=== PATIENT | female | born 1995 | race Caucasian/White ===

== ENCOUNTER → 2022-11-19 10:55 | Outpatient (BNVA) | payer MEDICAID, SELFPAY | PROVIDERS: PCP Family Medicine; Visit Provider Family Medicine | DX: Z13.6 Encounter for screening for cardiovascular disorders (principal) | CPT/HCPCS: 80053; 84439; 84443; 85025 ==

== ENCOUNTER → 2022-12-29 10:06 | Outpatient (BNVA) | payer MEDICAID, SELFPAY | PROVIDERS: PCP Family Medicine; Visit Provider Registered Nurse Neonatal Intensive Care | DX: N39.0 Urinary tract infection, site not specified (principal) | CPT/HCPCS: 81000 ==

== ENCOUNTER → 2023-11-18 10:21 | Outpatient (BNVA) | payer MEDICAID, SELFPAY | PROVIDERS: PCP Family Medicine; Visit Provider Nurse Practitioner Women's Health | DX: N84.1 Polyp of cervix uteri (principal) | CPT/HCPCS: 76830 ==

== ENCOUNTER 2024-01-09 06:42 | Day surgery (SDC) | payer MEDICAID, SELFPAY ==
--- NOTE | 2024-01-08 22:51 | W.PM.OPSFHP ---
Same Day Surgery H&P Indication for Procedure/HPI DATE OF PROCEDURE: January 08, 2024 CHIEF COMPLAINT/INDICATIONFOR SURGICAL PROCEDURE: cervical polyp PREOP DIAGNOSIS: cervical polyp PLANNED PROCEDURE: Operation Date: 01/09/24 08:20 Proposed Procedures p LEEP-Loop electrosurgucal excision procedure 33772,N84.1(Not Applicable) - Maxwell Sutherland MD 27 y.o. A1 On OCs c/o bleeding daily x two years + spotting + bleeding with intercourse Was examined here, found to have a cervical polyp Now scheduled for loop electrosurgical excision of cervical polyp Medications/Allergies* Allergies/Adverse Reactions Allergy/AdvReac Type Severity Reaction Status Date / Time Latex Allergy Mild ALGY-Rash Uncoded 12/02/23 13:39 Pertinent History/Comorbid Conditions* Medical History (Updated 11/05/23 @ 11:01 by Elida Bello NP) Endometriosis On OCP's Surgical History (Updated 11/19/22 @ 10:23 by Janet Pope DO) History of dilation and curettage Due to miscarriage History of Pertinent Exam Findings alert, oriented x 3, clear to auscultation bilaterally and regular rate & rhythm Recommendations Surgery/Procedure today Coding Level of Care Code Acute Code for Chg Fwd Time Spent (min) 20
[2024-01-09 07:04] VITALS: BP 120/69; PULSE 84; RESP 18; TEMP 36.4; O2SAT 98; BMI 23.6
[2024-01-09] MEDS: sodium chloride 0.9% 1,000 ML 30 ML IV (07:16)
[2024-01-09 07:20] LABS: OR HCG Qualitative Urine Negative (Negative)
--- NOTE | 2024-01-09 07:37 | ANES.PREANE2 ---
Pre-Anesthetic Assessment Height/Weight: Height 1.63 m Weight 62.596 kg Temp Pulse Resp BP Pulse Ox O2 Del Method 97.6 F 84 18 120/69 98 Room Air 01/09/24 07:04 01/09/24 07:04 01/09/24 07:04 01/09/24 07:04 01/09/24 07:04 01/09/24 07:04 Preop Diagnosis: cervical polyp Operation Date: 01/09/24 08:20 Proposed Procedures p LEEP-Loop electrosurgucal excision procedure 68239,N84.1(Not Applicable) - Maxwell Sutherland MD Familial anesthetic complications: None Was Beta Carmen taken within 24 hours: N/A Was Clonidine taken within 24 hours: N/A Last intake: Intake Last Liquid Date 01/08/24 Last Liquid Time 23:00 Last Solid Date 01/08/24 Last Solid Time 20:00 Social No alcohol and No tobacco Exam alert, oriented x 3, clear to auscultation bilaterally and regular rate & rhythm Airway Mallampati: Class I Dentition: full Anesthetic Plan ASA status: 1 Anesthesia: General Risk of > 500 ml blood loss (7ml/kg in children): No Medications/Allergies Home Medications Medication Instructions Recorded Confirmed Last Taken Type norethindrone acetate 1 mg-ethinyl See Rx Instructions .Route 11/15/23 01/08/24 01/08/24 Rx estradiol 20 mcg tablet .COMPLEX #63 tabs Allergies Allergy/AdvReac Type Severity Reaction Status Date / Time Latex Allergy Mild ALGY-Rash Uncoded 12/02/23 13:39 Current Medications Generic Name Dose Route Start Last Admin Trade Name Ajith PRN Reason Stop Dose Admin Sodium Chloride 1,000 mls @ 30 mls/hr 01/09/24 07:00 01/09/24 07:16 Sodium Chloride 0.9% IV 01/10/24 06:59 30 mls/hr .Q24H KENNETH Administration PFSH Anesthesia Medical History Endometriosis On OCP's Surgical History History of dilation and curettage Due to miscarriage History of Data Anesthesia Cardiac Studies: No Data to Display
--- NOTE | 2024-01-09 09:22 | PC.NURSE ---
Pt issue was resolving itself so decision was made by Dr. Sutherland not to proceed today pt fluids were discontinued and IV removed pt left for home
== END 2024-01-09 09:21 | disposition home or self-care (01) ==
PROVIDERS: Anesthesiology; PCP Family Medicine; Visit Provider Obstetrics & Gynecology
PROC: 0UBC7ZZ Excision of Cervix, Via Natural or Artificial Opening (ICD-10-PCS; CPT 57522; principal; 2024-01-09 08:10)
DX: N84.1 Polyp of cervix uteri (principal); Z53.8 Procedure and treatment not carried out for other reasons
CPT/HCPCS: 81025; 84703; J1100; J2250; J2405; J2704; J3010; J7030

== ENCOUNTER → 2024-03-04 11:35 | Outpatient (BNVA) | payer MEDICAID, SELFPAY | PROVIDERS: PCP Family Medicine; Visit Provider Obstetrics & Gynecology | DX: N88.8 Other specified noninflammatory disorders of cervix uteri (principal) | CPT/HCPCS: 87624 ==

== ENCOUNTER 2024-03-05 06:44 | Outpatient (CLI) | payer MEDICAID, SELFPAY ==
--- NOTE | 2024-03-05 06:45 | US_ITS ---
WS: [id number] US pelv w/transvag [id number] HISTORY: N88.8 - Other specified noninflammatory disorders of cerv... COMPARISON: 11/18/2023 Diagnostic limited evaluation of the pelvic structures. Uterus and adnexa were better visualized on t he prior study of 11/18/2023. Uterus: 6.0 cm x 4.1 cm x 3.4 cm. Uterus is tipped posteriorly. Uterus is only visualized on the transvaginal exam. There is heterogene ity within the myometrium but no definite fibroid. Endometrium: 0.8 cm. Endometrium is only intermittently visualized. There are a few calcifications pr obably representing prior instrumentation. Marked greater thickening of the lower endometrium. On the prior examination concern for a cervical polyp was raised. This thickening in the lower endocervical region could potentially be the polyp extending into the lower endometrial canal. Right ovary: 2.0 cm x 1.0 cm x 1.5 cm. Normal size and vascularity, no cystic or solid masses. Left ovary: 2.1 cm x 1.0 cm x 2.1 cm. Normal size and vascularity, no cystic or solid masses. No free fluid in the cul-de-sac. US/US pelv w/transvag [id number] IMPRESSION: 1. Quality this examination is limited. Very poor visualization of the uterus and endometrium and adnexa. 2. Asymmetric thickening of the endometrium. The lower endometrium is much mor e thick and prominent as compared to the endometrium towards the fundus. This t hickening could potentially be the previously described cervical polyp extendin g into the lower endometrial canal. Again, this ultrasound examination is of li mited diagnostic quality. Direct visualization of the cervical canal and lower endometrium may be necessary.
== END 2024-03-05 06:45 | disposition home or self-care (01) ==
LOC: RAD 06:44
PROVIDERS: PCP Family Medicine; Visit Provider Obstetrics & Gynecology
DX: N85.00 Endometrial hyperplasia, unspecified (principal)
CPT/HCPCS: 76830; 76856

== ENCOUNTER 2024-04-30 07:50 | Day surgery (SDC) | payer MEDICAID, SELFPAY ==
[2024-04-30] VITALS (12 sets, daily range): BP systolic 100–118; BP diastolic 67–82; PULSE 61–86; RESP 16–18; TEMP 36.1–36.6; O2SAT 92–99
--- NOTE | 2024-04-30 04:55 | P.HP_ITS ---
Same Day Surgery H&P Indication for Procedure/HPI DATE OF PROCEDURE: April 30, 2024 CHIEF COMPLAINT/INDICATIONFOR SURGICAL PROCEDURE: abnormal uterine bleeding PREOP DIAGNOSIS: abnormal uterine bleeding PLANNED PROCEDURE: Operation Date: 04/30/24 09:25 Proposed Procedures p Hysteroscopy Hysteroscopy w/ Endometrial Sampling, Possible Endometrial Polyp ectomy 49490, 99400, N93.9, N84.1(Not Applicable) - Maxwell Sutherland MD s Loop Electrosurgical Excision Procedure(Not Applicable) - Maxwell Sutherland MD 28 y.o. A1 On OCs Has two-year h/o daily ?random? bleeding Occurs throughout the day + bleeding with intercourse Now scheduled for hysteroscopy, endometrial sampling, LEEP cervical excision Medications/Allergies* Allergies/Adverse Reactions Allergy/AdvReac Type Severity Reaction Status Date / Time Latex Allergy Mild ALGY-Rash Uncoded 04/29/24 08:35 Pertinent History/Comorbid Conditions* Medical History (Updated 03/22/24 @ 16:11 by Maxwell Sutherland MD) Cervical polyp Endometriosis On OCP's Surgical History (Updated 11/19/22 @ 10:23 by Janet Pope DO) History of dilation and curettage Due to miscarriage History of Family History (Updated 01/10/24 @ 10:55 by Maxwell Sutherland MD) Cervical polyp Pertinent Exam Findings alert, oriented x 3, clear to auscultation bilaterally and regular rate & rhythm Recommendations Surgery/Procedure today Coding Level of Care Code Acute Code for Chg Fwd Time Spent (min) 20
[2024-04-30] MEDS: sodium chloride 0.9% 1,000 ML 30 ML IV (08:12)
[2024-04-30] MEDS: scopolamine 1.5 Patch 1 PATCH TRANSDERMA (08:12)
[2024-04-30 08:24] LABS: OR HCG Qualitative Urine Negative (Negative)
--- NOTE | 2024-04-30 08:44 | W.PM.OPSUD ---
Surgery/Procedure H&P Update DATE OF PROCEDURE: April 30, 2024 DATE H&P PERFORMED: 04/30/24 H&P UPDATE INFORMATION: I have reviewed H&P completed within last 30 days, I have examined patient prior to procedure and No changes to prior documentation PREOP DIAGNOSIS: abnormal uterine bleeding PLANNED PROCEDURE: Operation Date: 04/30/24 09:25 Proposed Procedures p Hysteroscopy Hysteroscopy w/ Endometrial Sampling, Possible Endometrial Polypectomy 36649, 81015, N93.9, N84.1(Not Applicable) - Maxwell Sutherland MD s Loop Electrosurgical Excision Procedure(Not Applicable) - Maxwell Sutherland MD
--- NOTE | 2024-04-30 09:10 | ANES.PREANE2 ---
Pre-Anesthetic Assessment Height/Weight: Height 1.63 m Temp Pulse Resp BP Pulse Ox O2 Del Method 97 F L 74 16 113/81 98 Room Air 04/30/24 08:04 04/30/24 08:04 04/30/24 08:04 04/30/24 08:04 04/30/24 08:04 04/30/24 08:07 Preop Diagnosis: abnormal uterine bleeding Operation Date: 04/30/24 09:25 Proposed Procedures p Hysteroscopy Hysteroscopy w/ Endometrial Sampling, Possible Endometrial Polypectomy 71693, 29546, N93.9, N84.1(Not Applicable) - Maxwell Sutherland MD s Loop Electrosurgical Excision Procedure(Not Applicable) - Maxwell Sutherland MD Familial anesthetic complications: none Was Beta Carmen taken within 24 hours: N/A Was Clonidine taken within 24 hours: N/A Last intake: Intake Last Liquid Date 04/29/24 Last Liquid Time 22:00 Last Solid Date 04/29/24 Last Solid Time 22:00 Social Alcohol and No tobacco drinks once per week Airway Submandibular: within normal limits Cervical ROM: within normal limits Dentition: full Comments: Comments: metal in upper teeth per orthodonist History/ROS No significant history except as noted and No significant complaints Pulmonary None reported CV/HEM None reported None reported Hepatic None reported GI None reported Metabolic None reported Musc/skel None reported Neuropsych None reported Anesthetic Plan ASA status: 2 Anesthesia: General Risk of > 500 ml blood loss (7ml/kg in children): No Medications/Allergies Home Medications Medication Instructions Recorded Confirmed Last Taken Type norethindrone acetate 1 mg-ethinyl See Rx Instructions .Route 01/23/24 04/29/24 04/29/24 Rx estradiol 20 mcg tablet .COMPLEX #63 tabs Allergies Allergy/AdvReac Type Severity Reaction Status Date / Time Latex Allergy Mild ALGY-Rash Uncoded 04/30/24 07:58 Current Medications Generic Name Dose Route Start Last Admin Trade Name Freq PRN Reason Stop Dose Admin Sodium Chloride 1,000 mls @ 30 mls/hr 04/30/24 08:00 04/30/24 08:12 Sodium Chloride 0.9% IV 05/01/24 07:59 30 mls/hr .Q24H KENNETH Administration PFSH Anesthesia Medical History Cervical polyp Endometriosis On OCP's Surgical History History of dilation and curettage Due to miscarriage History of Family History Other Cervical polyp Data Anesthesia Cardiac Studies: No Data to Display
[2024-04-30] MEDS: vasopressin 20 unit/mL INJ INJECTION (10:13)
[2024-04-30] MEDS: fentaNYL 50 mcg/mL INJ 2mL IVP (10:40)
--- NOTE | 2024-04-30 10:45 | PM.OP ---
Operative Report Date of procedure: May 01, 2024 Pre-op diagnosis: abnormal uterine bleeding cervical mass on ultrasound Post-op diagnosis: same Post-op findings: uterus sounded to 8 cm Endometrial cavity normal Minimal endometrial tissue No polyps or fibroids Normal cervix Procedure done: hysteroscopy Curettage of uterus Electrosurgical loop excision of the cervix Implants: none Specimens removed/disposition: endometrial tissue cervical tissue Surgeon: Maxwell Sutherland MD Anesthesia: General Estimated blood loss (mL): 5 Complications: none Condition: stable Disposition: PACU Brief History: 28 y.o. with daily bleeding and cervical mass on ultrasound Procedure: Informed consent signed. Patient was taken to the operating room. Anesthesia was induced. Patient was placed in dorsolithotomy position, prepped and draped for hysteroscopy. A bivalve speculum was placed in the vagina. The anterior lip of the cervix was grasped with a sharp-toothed tenaculum. The cervix was serially dilated with Hegar dilators. A hysteroscope was placed into the endometrial cavity. The endometrial cavity was seen to be normal. There were no polyps or fibroids. There was small amount of endometrial tissue. The hysteroscope was then removed. Endometrial curettage was done with a sharp curette. Endometrial tissue was sent to pathology. The cervix was then infiltrated at the cervicovaginal junction with 20 U of vasopressin to decrease bleeding. Electrosurgical loop excision of the cervix was done to a depth of approximately 5 mm. No bleeding was seen. Excellent hemostasis was noted. All instruments were then removed. The patient was placed supine, awakened, and taken to the recovery room. Postoperative condition: stable EBL: 5 cc Complications: none Sponge and instrument counts were correct x two
--- NOTE | 2024-04-30 11:35 | ANE.PACU2 ---
Inpatient post-anesthesia follow up: Airway intact: Yes Vital signs: Temperature 97.8 F Pulse Rate 61 Respiratory Rate 18 Blood Pressure 112/72 Pulse Oximetry 98 Oxygen Delivery Me thod Room Air Oxygen Flow Rate Fraction of Inspir ed Oxygen Hydration adequate: Yes Nausea and vomiting: No Pain level: 1 Mental status: Baseline
== END 2024-04-30 11:38 | disposition home or self-care (01) ==
PROVIDERS: PCP Family Medicine; Visit Provider Obstetrics & Gynecology
PROC: 0UJD8ZZ Inspection of Uterus and Cervix, Via Natural or Artificial Opening Endoscopic (ICD-10-PCS; CPT 58555; principal; 2024-04-30 09:15)
PROC: 0UBC7ZZ Excision of Cervix, Via Natural or Artificial Opening (ICD-10-PCS; CPT 57522; 2024-04-30 09:15)
DX: N93.9 Abnormal uterine and vaginal bleeding, unspecified (principal); N87.0 Mild cervical dysplasia; N72 Inflammatory disease of cervix uteri
CPT/HCPCS: 57522; 58558; 81025; 88305; J1100; J1885; J2250; J2704; J3010; J3490; J7030

== ENCOUNTER → 2024-11-23 16:31 | Outpatient (BNVA) | payer MEDICAID, SELFPAY | PROVIDERS: PCP Family Medicine; Visit Provider Nurse Practitioner Women's Health | DX: O34.40 Maternal care for other abnormalities of cervix, unspecified trimester (principal); Z98.890 Other specified postprocedural states; Z3A.00 Weeks of gestation of pregnancy not specified | CPT/HCPCS: 87624 ==

== ENCOUNTER → 2025-05-03 15:01 | Outpatient (BNVA) | payer MEDICAID, SELFPAY | PROVIDERS: PCP Family Medicine; Visit Provider Family Medicine | DX: M25.50 Pain in unspecified joint (principal); E06.3 Autoimmune thyroiditis | CPT/HCPCS: 80053; 84439; 84443; 85025; 85651; 86038; 86140; 86200; 86376; 86431 ==

== ENCOUNTER → 2025-06-07 10:20 | Outpatient (BNVA) | payer MEDICAID, SELFPAY | PROVIDERS: PCP Family Medicine; Visit Provider Family Medicine | DX: R30.0 Dysuria (principal) | CPT/HCPCS: 81000 ==